=== PATIENT | male | born 1970 ===

== ENCOUNTER 2025-05-25 11:14 | Inpatient (IN) | payer OTHER, SELFPAY ==
--- NOTE | ~2025-05-25 | US_ITS ---
EXAMINATION: US EXTRACRANIAL CAROTID DUPLEX, BILATERAL CLINICAL INFORMATION: Acute right POLICE CADET territory CVA, Pt with CKD and unable to get CTA of head/neck COMPARISON: None available. TECHNIQUE: Real-time ultrasound and Doppler techniques (integrating B-mode 2-D vascular images, Doppler spectral analysis and color-flow Doppler imaging) were utilized to interrogate the extracranial carotid arteries, the vertebral arteries and proximal subclavian arteries bilaterally. The degree of stenosis is determined by criteria similar to NASCET. FINDINGS: Right Side: 1. There is no significant atherosclerotic plaque seen in the bifurcation/proximal ICA region. 2. The common carotid artery PSV proximally is 96 cm/s and distally 81 cm/s. 3. The proximal internal carotid artery velocities are 53 cm/s systolic and 14 cm/s diastolic. 4. The proximal external carotid artery PSV is 67 cm/s. 5. The vertebral artery shows antegrade flow. 6. The subclavian artery waveforms are biphasic. ICA/CCA ratio 0.55 Left Side: 1. There is no significant atherosclerotic plaque seen in the bifurcation/proximal ICA region. 2. The common carotid artery PSV proximally is 105 cm/s and distally 53 cm/s. 3. The proximal internal carotid artery velocities are 82 cm/s systolic and 31 cm/s diastolic. 4. The proximal external carotid artery PSV is 97 cm/s. 5. The vertebral artery shows antegrade flow. 6. The subclavian artery waveforms are triphasic. US/US carotid duplex BI IMPRESSION: 1. RIGHT: No hemodynamically significant stenosis. 2. LEFT: No hemodynamically significant stenosis. Electronically signed by: Jeancarlos Delgado MD 05/26/2025 10:35 AM EST
--- NOTE | ~2025-05-25 | CT_ITS ---
EXAMINATION: CT HEAD WITHOUT CONTRAST CLINICAL INFORMATION: head pressure, disoriented x 1 week COMPARISON: None available. TECHNIQUE: Contiguous axial imaging was performed from the skull base to vertex without intravenous administration of contrast. This CT examination was performed using dose optimization techniques as appropriate, variously including the following: *Automated exposure control *Adjustment of mA and/or kV according to patient size (this includes techniques or standardized protocols for targeted exams where dose is matched to indication/reason for exam; i.e. extremities or head) *Use of iterative reconstruction technique FINDINGS: There is low-attenuation in the right occipital lobe extending into the posterior right temporal lobe measuring slightly more than CSF density. There is also focal globular low attenuation in the region of the posterior aspect of the internal capsule on the right, near the margin with thalamus. There is no intracranial hemorrhage. There is no mass-effect or midline shift. Basal cisterns and ventricles are within normal limits for age/cerebral volume. Orbits are symmetrical and unremarkable. Paranasal sinuses and mastoid air cells are pneumatized. There are no bony abnormalities. CT/CT head/brain wo IV con IMPRESSION: Right WHITE SUGAR BOILER territory ischemic change, favor chronic. Electronically signed by: Jeancarlos Delgado MD 05/25/2025 12:10 PM EST
--- NOTE | ~2025-05-25 | MR_ITS ---
CLINICAL HISTORY: Evaluate for acute CVA --- Additional Notes or Special Instructions: CT showing subacute vs chronic stroke. Has had ataxia x1 MR Brain without gadolinium Comparison: CT/SR - CT HEAD WITHOUT IV CONTRAST - 05/25/25 11:53 EST Findings: Large region of right CIVIL ENGINEER'S AIDE territory restricted diffusion. Scattered T2/FLAIR hyperintensities in the deep white matter, nonspecific, however may represent sequela of chronic microvascular ischemic disease. No intra-axial mass or hemorrhage. No midline shift. No hydrocephalus. Vascular flow voids are intact. The orbits are normal. The sinuses and mastoid air cells are clear. No focal bone lesion. IMPRESSION: Acute right CIVIL ENGINEER'S AIDE territory infarct. This document has been electronically signed by: Alicia Goodman MD on 05/25/2025 18:10:21
[2025-05-25 11:19] VITALS: BP 122/67; PULSE 100; RESP 18; TEMP 36.4; O2SAT 100; BMI 16.5
--- NOTE | 2025-05-25 11:22 | ED_ITS ---
HPI - Chest Pain General Chief Complaint: Chest Pain Stated Complaint: stroke like symptoms, pcp sent here Time Seen by Provider: 05/25/25 12:02 Source: patient and RN notes reviewed Mode of arrival: ambulatory Limitations: no limitations History of Present Illness ED Provider: Mariia De Jesus PA-C HPI narrative: This is a 55-year-old male, with a past medical history of hyperlipidemia, hypertension, CKD - currently being worked up for a mass on kidney, who presents emergency department accompanied by female vocational training teacher with concerns of head pressure, disorientation, and poor balance x 1 week ago. Patient reports that 1 week ago while he was bending over rolling up a garden hose he experienced a sudden onset head pressure, disorientation, and unsteady gait that has been persistent. He describes an abrupt central had pressure accompanied by both legs feeling ?wobbly?, and felt confused. Symptoms have persisted since onset, had pressure is now about 10% of the initial intensity, states that with the pain has never fully resolved in fluctuating severity. He reports decreased appetite. He states that he feels unsteady on his feet in notes a delay between you were he intends to place his feet and actual movement. Last night he drove to a familiar pupils shots this out recognizing it, and ultimately drove passed it. He denies any double or blurry vision. No chest pain or shortness of breath. No abdominal pain, nausea, vomiting focal weakness, numbness or tingling. Patient's girlfriend urged patient to seek medical care, states that he called his doctor this morning and told him to come to the ED for evaluation. He states he had a similar episode 4-5 years ago what his face drooped, and states he was unable to fully close his left eyelid, and also had left-sided facial droop, he states that he has no focal deficits since then. No known history of a diagnosed stroke. He is not on anticoagulation. MD complaint: other Prior episodes: No Related Data Home Medications ?Medication ?Instructions ?Recorded ?Confirmed amlodipine 10 mg tablet 10 mg PO DAILY 05/25/25 atorvastatin 20 mg tablet 20 mg PO DAILY 05/25/25 dapagliflozin propanediol 10 mg 10 mg PO QAM 05/25/25 tablet (Farxiga) hydrochlorothiazide 25 mg tablet 25 mg PO DAILY lisinopril 20 mg tablet 20 mg PO BID 05/25/25 metformin 1,000 mg tablet 1,000 mg PO BID 05/25/25 omeprazole 40 mg capsule,delayed 40 mg PO DAILY release Allergies Allergy/AdvReac Type Severity Reaction Status Date / Time No Known Allergies Allergy Verified 05/25/25 11:24 Review of Systems 2 Review of Systems: Constitutional : No Fever, No Chills ENT/Mouth : No sore throat, No Rhinorrhea Eyes: No Eye Pain, No Swelling, No Redness Cardiovascular : No Chest Pain, No SOB Respiratory : No Cough, No Sputum Gastrointestinal : No Nausea, No Vomiting, No Diarrhea, No abdominal Pain Genitourinary : No Dysuria, No Hematuria Musculoskeletal : No joint pain, No Myalgias, No Joint Swelling Skin : No Skin Lesions Neuro : No Weakness, No Numbness, No Headache All other systems reviewed and are negative Yes all other systems are reviewed and are negative Constitutional: Constitutional: Reports as per [facility] Social History Social History Smoked in Last 30 Days: Yes Use of substances other than those prescribed or required for medical reasons: No Advance Directives: Yes Advance Directives Information Provided: Yes Advance Directives on File: No Do you have a plan to hurt others: No Plan Physical Exam 2 Vital Signs: Vital Signs: Last Vital Signs Temp 97.6 F 05/25/25 11:19 Pulse 83 05/25/25 12:31 Resp 18 05/25/25 12:31 BP 124/79 05/25/25 12:31 Pulse Ox 96 05/25/25 12:31 O2 Del Method Room Air 05/25/25 12:31 BMI result Body Mass Index 16.5 Const: General: cooperative, comfortable and no acute distress O rientation/consciousness: patient oriented x3 Limitations: no limitations HEENT: Head: Yes normal to inspection, Yes normocephalic and Yes atraumatic Ears: hearing grossly normal bilaterally General nose exam: Normal external nose present Face and sinus: Yes normal facial exam Mouth: Normal oral and palatal mucosa present, oropharynx normal and moist mucous membranes Throat: Yes posterior oropharynx normal Eyes: General: appearance normal, both eyes and all related structures E yelids: Yes eyelids normal Conjunctivae: conjunctivae normal Sclerae: s clerae normal Pupils: Equal, round and reactive pupils present EOM: EOMs intact bilaterally Neck: Neck: Yes normal visual inspection, Yes full ROM and Yes no lymphadenopathy Lymphatic: no lymphadenopathy noted Chest: Chest palpation & inspection: normal inspection of the chest Resp: Effort & Inspection: normal respiratory effort and able to speak in complete sentences Auscultation: clear to auscultation bilaterally, no crackles, no rales, no rhonchi and no wheezes Cardio: Rate: regular rate Rhythm: regular rhythm Heart sounds: S1 normal heart sound present and S2 normal heart sound present GI: Inspection: Yes normal to inspection Skin: General skin exam: no rashes or lesions noted Trauma: no lacerations or abrasions Wounds: no wounds Neuro: Other: Left-sided facial droop noted(girlfriend and patient state this is chronic) General: patient oriented x3, gait normal and moves all extremities C ranial nerves: Yes CN's II-XII intact bilaterally and Yes Equal, round and reactive pupils present Cognition (Neuro): normal cognition Gait exam (Neuro): Normal gait present Motor exam (neuro): 5/5 motor strength present throughout and Pronator motor function not present Coordination: [id number] test normal Pupils: Normal pupillary reactivity/response: bilateral Extrem: General: Yes normal to inspection Right upper extremity: normal to inspection Left upper extremity: normal to inspection Right lower extremity: normal to inspection Left lower extremity: normal to inspection NIH Stroke Scale Internal: Initial- Upon Arrival Time: 12:32 Level of Consciousness: Alert Level of Consciousness Questions: Answers both questions correctly Level of Consciousness Commands: Performs both tasks correctly Best Gaze: Normal Visual: No visual loss Facial Palsy: Minor paralyis (Left-sided facial droop) Motor Arm (Right): No drift Motor Arm (Left): No drift Motor Leg (Right): No drift Motor Leg (Left): No drift Limb Ataxia: Absent Sensory: Normal Best Language: No aphasia Dysarthia: Normal Extinction and Inattention: No abnormality Score: 1 Course Course Course Narrative: This is a rapid medical exam performed by Regina Fry NP: Additional HPI, ROS, PE not included below will be deferred to primary provider. Patient is a 55y/o M presenting to the ED stating that he thinks he had a stroke last Sunday. Had frontal head pressure, disorientation, loss of balance. Was overexerting himself doing yard work that day. Denies headache. Plan: EKG, labs, CT head Medications Administered Discontinued Medications Generic Name Dose Route Start Last Admin Trade Name Liana PRN Reason Stop Dose Admin Magnesium Sulfate 2 gm in 50 mls @ 150 mls/hr 05/25/25 13:23 05/25/25 13:41 Magnesium Sulfate/H2o IV 05/25/25 13:42 150 mls/hr ONCE ONE Administration Sodium Chloride 1,000 mls @ 999 mls/hr 05/25/25 13:24 05/25/25 13:42 Ns IV 05/25/25 14:24 999 mls/hr .Q1H1M ONE Administration Medical Decision Making Medical Decision Making MDM Narrative: This is a 55-year-old male who presents emergency department with concerns of head pressure, disorientation, and poor balance x1 week. On arrival, vital signs within normal limits. Patient does have left-sided facial droop which he reports is chronic. No other neurologic focal findings noted. Patient was able to take several steps, patient states that he feels disoriented, and believes that there is a separation between his head in his feet when he is walking. Patient with acute/subacute neurologic symptoms beginning 1 week ago, concerning for CVA event versus alternative intracranial pathology. 12:38 PM 05/25/2025 (Mariia De Jesus PA-C): CT head revealing your right [employer] territorial infarct, likely chronic. Patient did have symptoms several years ago, however states that his symptoms eventually resolved. CTA was ordered for further diagnostics. Case discussed with my attending physician who is in agreement. Given symptom onset was 1 week ago, not made a stroke protocol as patient is not a TNK or clot retrieval patient. Labs, CTA ordered. Patient will likely need to be admitted for further management of likely stroke. 2:20 PM 05/25/2025 (Mariia De Jesus PA-C): Labs have returned, he did have a critical magnesium at 1.4, replenished with IV magnesium. Creatinine 2.2, and a BUN of 47. Patient states that he has a history of CKD, we have no previous for comparison. Given this, I informed hospitalist as he likely will need an MRI, unclear if they are going to want to CTA given kidney function, we will defer additional diagnostic imaging to the hospitalist service. Discussed case with hospitalist, transfer of care initiated. Differential Diagnosis Differential Diagnoses: The differential diagnosis associated with the presentation includes CVA, ICH, SDH, electrolyte derangement Admission/Observation Consideration of admission/observation: Escalation of care including admission/observation considered Lab Data [facility] Lab Attestation statement: I reviewed the patient's lab results. See MDM 05/25/25 12:26 05/25/25 12:26 Labs: Lab Results 05/25/25 05/25/25 Range/Units 12:26 12:27 WBC 9.5 (4.8-10.8) X10*3/uL RBC 4.73 (4.60-5.80) X10*6/uL Hgb 15.0 (14.0-18.0) g/dl Hct 44.1 (42.0-52.0) % MCV 93.2 (80.0-98.0) fL MCH 31.7 (27.0-33.0) pg MCHC 34.0 (31.0-36.0) g/dl RDW 13.3 (11.0-16.0) % Plt Count 267 (160-400) X10*3/uL MPV 10.1 (9.4-12.4) fL Immature Gran % (Auto) 0.3 (0.0-0.4) % Neut % (Auto) 71.6 (45-73) % Lymph % (Auto) 19.9 L (20-40) % [place] % (Auto) 5.4 (2-11) % Eos % (Auto) 1.9 (0-4) % Baso % (Auto) 0.9 (0-2) % Lymph # (Auto) 1.9 (1.2-4.9) X10*3/uL [place] # (Auto) 0.5 (0.1-1.2) X10*3/uL Eos # (Auto) 0.2 (0.0-0.4) X10*3/uL Baso # (Auto) 0.1 (0.0-0.2) X10*3/uL Abs Immat Gran (auto) 0.03 (0.00-0.03) X10*3/uL Absolute Neuts (auto) 6.8 (2.0-8.3) x10*3/uL Absolute Nucleated RBC 0.000 (0.0-0.012) X10*3/uL Nucleated RBC % (auto) 0.0 (0.0-0.2) /100WBC PT 13.3 (11.2-13.5) SEC INR 1.1 (0.9-1.1) Sodium 141 (135-145) mmol/L Potassium 4.6 (3.3-5.1) mmol/L Chloride 109 H (96-108) mmol/L Carbon Dioxide 20 L (22-29) mmol/L Anion Gap 17 (12-20) BUN 47 H (9-16) mg/dL Creatinine 2.22 H (0.5-1.4) mg/dL Estim Creat Clear Calc 23.6 Estimated GFR 31 Random Glucose 112 (60-115) mg/dL Calcium 9.1 (8.4-10.2) mg/dL Magnesium 1.4 L* (1.6-2.6) mg/dL Total Bilirubin 0.6 (0.0-1.0) mg/dL AST 25 (5-37) U/L ALT 29 (0-40) U/L Alkaline Phosphatase 71 (39-117) U/L Troponin I High Sens 8.1 (<3.5-35.0) ng/L Total Protein 7.5 (6.5-8.0) g/dL Albumin 4.5 (3.5-5.0) g/dL Influenza Type A (PCR) NEGATIVE (Negative) Influenza Type B (PCR) NEGATIVE (Negative) RSV RNA Qual (PCR) NEGATIVE (Negative) SARS-CoV-2 RNA (RT-PCR) NEGATIVE (Negative) Radiology Impression Discussion of test interpretation with radiology: I have reviewed the radiologist's reading. Radiologist Impression: FINDINGS: There is low-attenuation in the right occipital lobe extending into the posterior right temporal lobe measuring slightly more than CSF density. There is also focal globular low attenuation in the region of the posterior aspect of the internal capsule on the right, near the margin with thalamus. There is no intracranial hemorrhage. There is no mass-effect or midline shift. Basal cisterns and ventricles are within normal limits for age/cerebral volume. Orbits are symmetrical and unremarkable. Paranasal sinuses and mastoid air cells are pneumatized. There are no bony abnormalities. CT/CT head/brain wo IV con IMPRESSION: Right [employer] territory ischemic change, favor chronic. Electronically signed by: Jeancarlos Delgado MD 05/25/2025 12:10 PM EST Dictated By: Jeancarlos Delgado MD Critical Care Time Critical Care Time Critical Care Time: Yes Total Critical Care Time: 45 Attestation: I have personally provided critical care time exclusive of time spent on separately billable procedures. Time includes review of lab data, radiology results, discussion with consultants, and monitoring for potential decompensation. Intervention performed as documented. Discharge Plan Discharge Clinical Impression: CVA (cerebral vascular accident) Patient Disposition: Admitted As Inpatient
--- NOTE | 2025-05-25 11:24 | ECG_ITS ---
Test Reason : UNSTEADY Blood Pressure : */* mmHG Vent. Rate : 92 BPM Atrial Rate : 92 BPM P-R Int : 182 ms QRS Dur : 84 ms QT Int : 342 ms P-R-T Axes : 54 -20 34 degrees QTcB Int : 422 ms Normal sinus rhythm cannot exclude old Inferior infarct , age undetermined Abnormal ECG No previous ECGs available Referred By: Jamia Fry Electronically Signed By: YOSHI RUIZ
[2025-05-25 12:31] VITALS: BP 124/79; PULSE 83; PULSE 87; RESP 18; O2SAT 96
[2025-05-25 12:44] LABS: MANUAL DIFF FLAG NO
[2025-05-25 12:49] LABS: Hematocrit 44.1 % (42.0-52.0); Hemoglobin 15.0 g/dl (14.0-18.0); Imm Gran Abs Auto 0.03 X10*3/uL (0.00-0.03); Imm Gran Pct Auto 0.3 % (0.0-0.4); Lymphocytes Absolute Auto 1.9 X10*3/uL (1.2-4.9); Mean Corpuscular HGB Conc 34.0 g/dl (31.0-36.0); Mean Corpuscular Hemoglobin 31.7 pg (27.0-33.0); Mean Corpuscular Volume 93.2 fL (80.0-98.0); NRBC Abs Auto 0.000 X10*3/uL (0.0-0.012); NRBC Pct Auto 0.0 /100WBC (0.0-0.2); Platelet Count 267 X10*3/uL (160-400); Red Blood Count 4.73 X10*6/uL (4.60-5.80); White Blood Count 9.5 X10*3/uL (4.8-10.8)
[2025-05-25 12:51] LABS: INTERNATIONAL NORM RATIO 1.1 (0.9-1.1); Prothrombin Time 13.3 SEC (11.2-13.5)
[2025-05-25 13:10] LABS: Troponin-I High Sensitivity 8.1 ng/L (<3.5-35.0)
[2025-05-25 13:24] LABS: Alanine Aminotransferase 29 U/L (0-40); Albumin Level 4.5 g/dL (3.5-5.0); Alkaline Phosphatase 71 U/L (39-117); Anion Gap 17 (12-20); Aspartate Amino Transferase 25 U/L (5-37); Blood Urea Nitrogen 47 mg/dL (9-16); Calcium 9.1 mg/dL (8.4-10.2); Carbon Dioxide 20 mmol/L (22-29); Chloride 109 mmol/L (96-108); Creatinine Clr Calc Pharmacy 23.6; Estimated Glomerular Filt Rate 31; Magnesium 1.4 mg/dL (1.6-2.6); Potassium 4.6 mmol/L (3.3-5.1); Sodium 141 mmol/L (135-145); Total Protein 7.5 g/dL (6.5-8.0)
[2025-05-25 13:26] LABS: Resp Syncy Virus RNA Qual PCR NEGATIVE (Negative); SARS COV2 PCR INHOUSE NEGATIVE (Negative)
[2025-05-25] MEDS: Magnesium Sulfate/H2O 2 GM/50 ML PIGGYBACK IV (13:41)
--- NOTE | 2025-05-25 13:53 | HO.NURTONUR ---
Addendum entered by Casie Prater RN 05/25/25 16:18: CT shows +CVA will need f/u MRI. MRI screening form complete Original Note: Pt here w/ c/o stroke sx's x 1 week. Pt states 1 wk ago while doing yard work had sudden onset of frontal head pressure; since then pt states he has found himself to be disoriented, unsteady on feet, and decr. po intake. Pt denies ever having cp/dizziness/blurry vision/nausea. Pt ambulated w/ steady gait in ED. Mg 1.4 and pt was repleted.
--- NOTE | 2025-05-25 15:12 | PHA.MEDREC ---
Pharmacy Consult ? Medication Reconciliation Pharmacy has completed the medication reconciliation. Spoke to patient who had a written home med list to confirm.
--- OUTSIDE RECORDS SUMMARY | 2025-05-25 15:28 | XMS_ITS | Encounter Summary ---
Author Organization [facility] Address [address] [place] [address] Phone Care Team Providers Care Talent Program Manager Name Role Phone Katelyn Guevara MD Primary Care Provider Encounter Details Date Type Department Care Team (Late st Contact Info) Description 11/07/2024 Documentation Only [facility] [address] [place] [address] Adria Kim [address] [place] [address] Social History Tobacco Use Types Packs/Day Years Used Date Smoking Tobacco: Never Assessed Sex and Gender Information Value Date Recorded Sex Assigned at Not on file Legal Sex Male 10:06 AM EDT Gender Identity Not on file Sexual Orientation Not on file documented as of this encounter Plan of Treatment Upcoming Encounters Date Type Department Care Team (Late st Contact Info) Description 11/04/2025 1:45 PM EDT Office Visit [facility] [address] [place] [address] Hossein Lipscomb MD [address] [place] [address] [place] [phone] documented as of this encounter Visit Diagnoses Not on filedocumented in this encounter Care Teams Talent Program Manager Relationship Specialty Start Date End Date Katelyn Guevara MD [address] [place] [address] PCP - General Internal Medicine 09/26/23 documented as of this encounter
--- OUTSIDE RECORDS SUMMARY | 2025-05-25 15:28 | XMS_ITS | Encounter Summary ---
Author Organization [facility] Address [address] [facility] [address] [place] [address] Phone Care Team Providers Care Blasting Helper Name Role Phone Katelyn Guevara MD Primary Care Provider [phone] Encounter Details Date Type Department Care Team (Late st Contact Info) Description 05/06/2024 Documentation Only [facility] [address] [place] [address] [place], [place] [address] [place] [address] Social History Tobacco Use Types [...] Visit [facility] [address] [place] [address] Hossein Lipscomb MD [address] [place] [address] [place] [phone] documented as of this encounter Visit Diagnoses Not on filedocumented in this encounter Care Teams Blasting Helper Relationship Specialty Start Date End Date Katelyn Guevara MD [address] [place] [address] PCP - General Internal Medicine 09/26/23 documented as of this encounter
--- OUTSIDE RECORDS SUMMARY | 2025-05-25 15:28 | XMS_ITS | Clinical Summary ---
Author Organization [facility] Address [address] [address] Phone Care Team Providers Care Team Foreman Name Role Phone Katelyn Guevara MD Primary Care Provider [phone] Allergies No known active allergies Medications amLODIPine (NORVASC) 10 MG tablet Take 10 mg by mouth 1 (one) time each day 4 Active hydroCHLOROthia zide 25 MG tablet Take 25 mg by mouth 1 (one) time each day 4 Active lisinopril 20 MG tablet Take 20 mg by mouth in the morning and 20 mg in the evening. 4 Active metFORMIN (GLUCOPHAGE) 1000 MG tablet Take 1,000 mg by mouth in the morning and 1,000 mg in the evening. 4 Active sildenafil (VIAGRA) 100 MG tablet Take 100 mg by mouth 1 (one) time each day if needed for erectile dysfunction Active omeprazole (PriLOSEC) [address] capsule TAKE 1 CAPSULE BY MOUTH ONCE DAILY 4 Active Farxiga 10 MG tablet Take 10 mg by mouth every morning 90 tablet 3 4 06/11/20 25 Active atorvastatin (LIPITOR) 20 MG tablet Take 1 tablet (20 mg total) by mouth 1 (one) time each day 90 tablet 3 5 01/02/20 26 Active Active Problems Problem Noted Date Diagnosed Date Hypertension 01/02/2024 Encounters Date Type Department Care Team Description 04/22/2025 2:45 PM EDT Office Visit [facility], [address] [place] [address] Hossein Lipscomb MD Chronic kidney disease, stage 4 (severe) (HCC) (Primary Dx) from Last 3 Months Social History Tobacco Use Types Packs/Day Years Used Date Smoking Tobacco: Never Assessed Sex and Gender Information Value Date Recorded Sex Assigned at Not on file Legal Sex Male 10:06 AM EDT Gender Identity Not on file Sexual Orientation Not on file Plan of Treatment Upcoming Encounters Date Type Department Care Team (Late st Contact Info) Description 11/04/2025 1:45 PM EDT Office Visit [facility] [place], [address] [place] [address] Hossein Lipscomb MD [address] [facility] [place] [address] Health Maintenance Due Date Last Done Comments Hepatitis B Vaccine (1 of 3 - 19+ 3-dose series) 02/14 Pneumococcal Vaccine: 50+ Years (1 of 2 - PCV) 988 Colorectal Cancer Screening: Annual FOBT 2018 Colorectal Cancer Screening: Colonoscopy 2018 Colorectal Cancer Screening: Sigmoidoscopy 2018 Influenza Vaccine (#1) 2025 Insurance Medicaid [place] Member Subscriber Plan / Payer (Ef fective 2024-Present) Name:Nicko Mujica Relation to Subscriber:Self Name:Nicko Mujica Payer ID:Not on file Group ID:Not on file Type:Not on file Address: [address] [address] [employer] Medicaid Care Teams Team Foreman Relationship Specialty Start Date End Date Katelyn Guevara MD [address] [facility] [address] PCP - General Internal Medicine 09/26/23
--- OUTSIDE RECORDS SUMMARY | 2025-05-25 15:28 | XMS_ITS | Encounter Summary ---
Author Organization [facility] Address [address] [facility] [address] [place] [address] Phone Care Team Providers Care Senior Research Executive Name Role Phone Katelyn Guevara MD Primary Care Provider [phone] Encounter Details Date Type Department Care Team (Late st Contact Info) Description 09/26/2023 Documentation Only [facility] [address] [place] [address] [place], [place] [address] [place] [address] Social History Tobacco Use Types [...] Visit [facility] [address] [place] [address] Hossein Lipscomb MD [address] [place] [address] [place] [phone] documented as of this encounter Visit Diagnoses Not on filedocumented in this encounter Care Teams Senior Research Executive Relationship Specialty Start Date End Date Katelyn Guevara MD [address] [place] [address] PCP - General Internal Medicine 09/26/23 documented as of this encounter
--- OUTSIDE RECORDS SUMMARY | 2025-05-25 15:28 | XMS_ITS | Encounter Summary ---
Author Organization [facility] Address [address] [facility] [address] [place] [address] Phone Care Team Providers Care Continuous Drier Helper Name Role Phone Katelyn Guevara MD Primary Care Provider [phone] Encounter Details Date Type Department Care Team (Late st Contact Info) Description 05/06/2024 Documentation Only [facility] [address] [place] [place] [address] [place], [place] [address] [place] [address] Social History Tobacco Use Types [...] Visit [facility] [address] [place] [address] Hossein Lipscomb MD [address] [place] [address] [place] [phone] documented as of this encounter Visit Diagnoses Not on filedocumented in this encounter Care Teams Continuous Drier Helper Relationship Specialty Start Date End Date Katelyn Guevara MD [address] [place] [address] PCP - General Internal Medicine 09/26/23 documented as of this encounter
--- OUTSIDE RECORDS SUMMARY | 2025-05-25 15:28 | XMS_ITS | Encounter Summary ---
Author Organization [facility] Address [address] [place] [address] Phone Care Team Providers Care Stenotypist Name Role Phone Katelyn Guevara MD Primary Care Provider [phone] Encounter Details Date Type Department Care Team (Late st Contact Info) Description 10/31/2024 Documentation Only [facility] [address] [place] [address] Adria Kim [address] [place] [address] Social History Tobacco Use Types [...] Visit [facility] [address] [place] [address] Hossein Lipscomb MD [address] [place] [address] [place] [phone] documented as of this encounter Visit Diagnoses Not on filedocumented in this encounter Care Teams Stenotypist Relationship Specialty Start Date End Date Katelyn Guevara MD [address] [place] [address] PCP - General Internal Medicine 09/26/23 documented as of this encounter
--- OUTSIDE RECORDS SUMMARY | 2025-05-25 15:28 | XMS_ITS | Encounter Summary ---
Author Organization [facility] Address [address] [facility] [address] [place] [address] Phone Care Team Providers Care Wine Manager Name Role Phone Katelyn Guevara MD Primary Care Provider [phone] Encounter Details Date Type Department Care Team (Late st Contact Info) Description 02/27/2024 Documentation Only [facility] [address] [place] [place] [address] Homer Walsh MD [address] [place] [address] [place] [address] Social History Tobacco Use Types Packs/Day Years [...] Visit [facility] [address] [place] [place] [address] Hossein Lipscomb MD [address] [place] [address] [place] [address] documented as of this encounter Visit Diagnoses Not on filedocumented in this encounter Care Teams Wine Manager Relationship Specialty Start Date End Date Katelyn Guevara MD [address] [place] [address] PCP - General Internal Medicine 09/26/23 documented as of this encounter
--- OUTSIDE RECORDS SUMMARY | 2025-05-25 15:28 | XMS_ITS | Encounter Summary ---
Author Organization [facility] Address PO [facility] [address] [place] [address] Phone Care Team Providers Care Garnisher Name Role Phone Katelyn Guevara MD Primary Care Provider [phone] Encounter Details Date Type Department Care Team (Late st Contact Info) Description 09/26/2024 Documentation Only [facility] [address] [place] [address] [place]Renay [place], [place] [address] [place] [address] Social History Tobacco Use Types [...] Visit [facility] [address] [place] [address] Hossein Lipscomb MD [address] [place] [address] [place] [phone] documented as of this encounter Visit Diagnoses Not on filedocumented in this encounter Care Teams Garnisher Relationship Specialty Start Date End Date Katelyn Guevara MD [address] [place] [id number] PCP - General Internal Medicine 09/26/23 documented as of this encounter
--- OUTSIDE RECORDS SUMMARY | 2025-05-25 15:28 | XMS_ITS | Encounter Summary ---
Author Organization [facility] Address PO [facility] [address] [place] [address] Phone Care Team Providers Care Tool Engine Lathe Set Up Operator Name Role Phone Katelyn Guevara MD Primary Care Provider [phone] Encounter Details Date Type Department Care Team (Late st Contact Info) Description 05/06/2024 Documentation Only [facility] [address] [place] [address] [place]ay [place], [place] [address] [place] [address] Social History Tobacco Use Types [...] Visit [facility] [address] [place] [address] Hossein Lipscomb MD [address] [place] [address] [place] [phone] documented as of this encounter Visit Diagnoses Not on filedocumented in this encounter Care Teams Tool Engine Lathe Set Up Operator Relationship Specialty Start Date End Date Katelyn Guevara MD [address] [place] [id number] PCP - General Internal Medicine 09/26/23 documented as of this encounter
--- OUTSIDE RECORDS SUMMARY | 2025-05-25 15:28 | XMS_ITS | Encounter Summary ---
Author Organization [facility] [place], Address [address] [place] [address] Phone Care Team Providers Care Yarn Skeins Examiner Name Role Phone Katelyn Guevara MD Primary Care Provider [phone] Encounter Details Date Type Department Care Team (Late st Contact Info) Description 04/21/2024 Documentation Only [facility] [address] H[address]ICK [address] [place] [phone] Kim Covington [address] [place] [address] Social History Tobacco Use Types [...] Visit [facility] [address] [place] [address] Hossein Lipscomb MD [address] [place] [address] [place] [phone] documented as of this encounter Visit Diagnoses Not on filedocumented in this encounter Care Teams Yarn Skeins Examiner Relationship Specialty Start Date End Date Katelyn Guevara MD [address] [place] [address] PCP - General Internal Medicine 09/26/23 documented as of this encounter
--- OUTSIDE RECORDS SUMMARY | 2025-05-25 15:28 | XMS_ITS | Encounter Summary ---
Author Organization [facility] Address [address] [place] [address] Phone Care Team Providers Care Bolting Machine Operator Name Role Phone Katelyn Guevara MD Primary Care Provider [phone] Encounter Details Date Type Department Care Team (Late st Contact Info) Description 08/21/2024 Documentation Only [facility] [address] [place] [address] Mahnaz [place], [place] [address] [place] [address] Social History Tobacco Use Types [...] Visit [facility] [address] [place] [address] Hossein Lipscomb MD [address] [place] [address] [place] [phone] documented as of this encounter Visit Diagnoses Not on filedocumented in this encounter Care Teams Bolting Machine Operator Relationship Specialty Start Date End Date Katelyn Guevara MD [address] [place] [phone] PCP - General Internal Medicine 09/26/23 documented as of this encounter
--- NOTE | 2025-05-25 15:41 | PM.NEUROCN ---
History of Present Illness Data of Consult Service Date: 05/25/25 Primary Care Provider: Unknown Physician HPI Reason for consult: Stroke 55 years old man with past medical history of hypertension and renal insufficiency who apparently is being investigated for a renal mass, as per ER notes, came to emergency room for ?head pressure?. He said that this was not headache or a pain but rather it was a pressure type feeling. There was no associated focal weakness or visual symptom. He was working in the [employer] when it started and it started about a week ago. For some reason he decided to come to hospital today. There was no previous history of similar symptoms or significant headaches. His stated that his personality has been somewhat different and he has been argumentative during last few days. Review of Systems Review of Systems: General: No significant loss of weight Cardiovascular: No chest pain or palpitation Respiratory: No shortness of breath or wheezing Genitourinary: No loss of bowel bladder control Neurological: Denies headaches Psychiatric: stated that they have been some change in personality during last few days Gastrointestinal: No significant changes were symptoms Skin: No obvious lesions or new lesions Musculoskeletal: No significant symptoms PMFSH Social History Social History Smoked in Last 30 Days: Yes Use of substances other than those prescribed or required for medical reasons: No Advance Directives: Yes Advance Directives Information Provided: Yes Advance Directives on File: No Do you have a plan to hurt others: No Plan Meds Allergies Allergy/AdvReac Type Severity Reaction Status Date / Time No Known Allergies Allergy Verified 05/25/25 11:24 Active Medications: Current Medications Lactated Ringer's (Lr) 1,000 mls @ 100 mls/hr IVCONT .Q10H SASHA Home Medications ?Medication ?Instructions ?Recorded ?Confirmed ?Last Taken ?Type amlodipine 10 mg tablet 10 mg PO DAILY 05/25/25 05/25/25 05/25/25 History atorvastatin 20 mg tablet 20 mg PO DAILY 05/25/25 05/25/25 05/25/25 History dapagliflozin propanediol 10 mg 10 mg PO DAILY 05/25/25 05/25/25 05/25/25 History tablet (Farxiga) hydrochlorothiazide 25 mg tablet 25 mg PO DAILY 05/25/25 05/25/25 05/25/25 History lisinopril 20 mg tablet 20 mg PO BID 05/25/25 05/25/25 05/25/25 History metformin 1,000 mg tablet 1,000 mg PO BID 05/25/25 05/25/25 05/25/25 History omeprazole 40 mg capsule,delayed 40 mg PO DAILY@0630 05/25/25 05/25/25 05/25/25 History release Physical Exam Vital Signs: Vital Signs: Last Vital Signs Temp 97.6 F 05/25/25 11:19 Pulse 83 05/25/25 12:31 Resp 18 05/25/25 12:31 BP 124/79 05/25/25 12:31 Pulse Ox 96 05/25/25 12:31 O2 Del Method Room Air 05/25/25 12:31 BMI result Body Mass Index 16.5 Neuro: Other: Mental Status: Alert and oriented to person, place, and time. Normal attention. Normal spontaneous speech, fluency, and comprehension. He same little bit 1st stated or inpatient. Cranial Nerves: CN II: Visual dennis full to confrontation, visual acuity intact. CN III, IV, : Pupils equal, round, reactive to light and accommodation. Extraocular movements are normal. CN V: Facial sensation is normal. CN VII: Facial movements symmetrical. CN VIII: Hearing intact to bedside conversation is normal. CN IX, X: Palate elevates symmetrically. CN XI: Shoulder shrug and head turn symmetrical. CN XII: Tongue midline without atrophy or fasciculations. Motor: Bulk and tone normal in all extremities. No significant muscle weakness in arms and legs. No drift. Reflexes: Deep tendon reflexes 2+ and symmetric. Plantar response down-going bilaterally. Coordination: [id number] and ciok-do-[id number] testing normal. No dysmetria. Gait and Station: No obvious gait abnormality. No ataxia or instability. Extrapyramidal: Full facial expressions and blinking. No rigidity. Movements are appropriate with no tremor or abnormality. Speech: Normal; no dysarthria or tremor. Results Labs 05/25/25 12:26 05/25/25 12: Labs: Short CBC 05/25/25 Range/Units 12: WBC 9.5 (4.8-10.8) X10*3/uL Hgb 15.0 (14.0-18.0) g/dl Hct 44.1 (42.0-52.0) % Plt Count 267 (160-400) X10*3/uL [facility] 05/25/25 12:26 Sodium 141 Potassium 4.6 Chloride 109 H Carbon Dioxide 20 L BUN 47 H Creatinine 2.22 H Calcium 9.1 Liver Function 05/25/25 Range/Units 12:26 Total Bilirubin 0.6 (0.0-1.0) mg/dL AST 25 (5-37) U/L ALT 29 (0-40) U/L Alkaline Phosphatase 71 (39-117) U/L Albumin 4.5 (3.5-5.0) g/dL [address] [address] [address] Scan Report Signed Patient: Nicko Mujica MR#: [id number] : 1970 Acct:[id number] Age/Sex: 55 / M ADM Date: 05/25/25 Loc: HO.ED Attending Dr: Ordering Physician: Jamia Fry NP Date of Service: 05/25/25 Procedure(s): CT head/brain wo IV con Accession Number(s): [id number] cc: Physician,Unknown ; Jamia Fry NP~ Report Number: [id number]: Total DLP = 686.00 mGy-cm Reason for Exam: head pressure, disoriented x 1 week EXAMINATION: CT HEAD WITHOUT CONTRAST CLINICAL INFORMATION: head pressure, disoriented x 1 week COMPARISON: None available. TECHNIQUE: Contiguous axial imaging was performed from the skull base to vertex without intravenous administration of contrast. This CT examination was performed using dose optimization techniques as appropriate, variously including the following: *Automated exposure control *Adjustment of mA and/or kV according to patient size (this includes techniques or standardized protocols for targeted exams where dose is matched to indication/reason for exam; i.e. extremities or head) *Use of iterative reconstruction technique Assessment and Plan (1) CVA (cerebral vascular accident): Qualifiers: CVA mechanism: unspecified Qualified Code(s): I63.9 - Cerebral infarction, unspecified Status: Acute 55 years old man who probably has a subacute right posterior cerebral artery area ischemic infarct. Etiology was unclear as it could be embolism versus atherothrombotic. My recommendation is to obtain CTA of brain and neck, have cardiac tele to rule out atrial fibrillation, and have a noncontrast MRI of brain. Also, find out the nature of renal problem or lesion, which might help to figure out cause of this lesion. I would recommend holding at least some of the blood pressure medicines to avoid hypotension, which could make his situation worse. Procedures Date of Service Date of Service: 05/25/25
[2025-05-25 15:46] VITALS: BP 129/64; PULSE 87; RESP 21; TEMP 36.5; O2SAT 96
[2025-05-25 16:21] VITALS: BP 142/82; PULSE 84; RESP 18; TEMP 36.4; O2SAT 93
[2025-05-25 17:09] LABS: Cholesterol 141 mg/dL (<200); HDL Cholesterol 32 mg/dL (>40); Triglycerides 268 mg/dL (<150)
[2025-05-25] MEDS: Lactated Ringers 1,000 ML 100 ML IVCONT (18:59)
[2025-05-25 19:15] LABS: Anion Gap 16 (12-20); Blood Urea Nitrogen 44 mg/dL (9-16); Calcium 9.3 mg/dL (8.4-10.2); Carbon Dioxide 22 mmol/L (22-29); Chloride 108 mmol/L (96-108); Creatinine Clr Calc Pharmacy 26.2; Estimated Glomerular Filt Rate 35; Potassium 4.5 mmol/L (3.3-5.1); Sodium 141 mmol/L (135-145)
--- NOTE | 2025-05-25 19:20 | PC.NURSE ---
critical rad result recieved by this RN after attempt to reach provider - per DON Mclain, critical result had already been communicated by radiology to him with no further questions.
[2025-05-25 19:26] VITALS: BP 122/71; PULSE 86; RESP 18; TEMP 36.6; O2SAT 97
--- NOTE | 2025-05-25 22:05 | P.HPHOSP_ITS ---
History of Present Illness Date of Service: 05/25/25 Chief Complaint: Difficulty walking Pt is a 55-year-old male with a PMH significant for?HTN, HLD, non-insulin dependent diabetes type 2, CKD (reportedly being worked up for a mass on the kidney) and GERD who presents to the ED with?poor balance and head pressure x7 days. Pt is uncertain exactly how to voice his complaints, but describes difficulty walking as being not sure where my feet are going . Headache is less a pain than a pressure at the front of his head. At first was very intense though now has gradually gotten better. Pt reports that he just feels off and not right . Denies ale paresis or fall. No difficulty speaking or word finding. Reports a previous similar episode 5 years ago when his left eye and lip drooped for a few days before recovering somewhat, though he reports he now has a chronic left-sided facial droop. Did not have a headache at that time. Did not seek medical attention or evaluation at that time. Pt did not come to the hospital last week as he thought he could similarly wait out these symptoms; however when they did not resolve his girlfriend convinced him to come to the hospital for evaluation. In the ED pt's vitals were stable. Labs were significant for creatinine 2.22 (baseline unknown, magnesium 1.4, triglycerides 268, HDL 32. CT of head showing right RETAIL PERSONAL BANKER territory ischemic change favoring chronic infarct. MRI showing acute right RETAIL PERSONAL BANKER territory infarct. Pt was treated in the ED with magnesium sulfate 2g IV and 1L IVF bolus. Pt is admitted to the hospital for acute CVA. Review of Systems 2 Review of Systems: Yes all other systems are reviewed and are negative [facility] Social History Smoked in Last 30 Days: Yes Use of substances other than those prescribed or required for medical reasons: No Advance Directives: Yes Advance Directives Information Provided: Yes Advance Directives on File: No Do you have a plan to hurt others: No Plan Meds Allergies Allergy/AdvReac Type Severity Reaction Status Date / Time No Known Allergies Allergy Verified 05/25/25 11:24 Active Medications: Current Medications Acetaminophen (Acetaminophen 325 Mg Tablet) 650 mg PO Q6H PRN PRN Reason: Pain, Mild 1-3,fever,headache Amlodipine Besylate (Amlodipine Besylate 10 Mg Tablet) 10 mg PO DAILY [facility]; Protocol Aspirin (Aspirin 81 Mg Tab.Chew) 81 mg PO DAILY [facility] Last Admin: 05/25/25 18:58 Dose: 81 mg Atorvastatin Calcium (Atorvastatin Calcium 40 Mg Tablet) 40 mg PO BEDTIME [facility] Calcium Carbonate (Calcium Carbonate 750 Mg Tab.Chew) 750 mg PO Q4H PRN PRN Reason: Heartburn Enoxaparin Sodium (Enoxaparin Sodium 30 Mg/0.3 Ml Syringe) 30 mg SUBCUT Q24H [facility] Last Admin: 05/25/25 19:05 Dose: 30 mg Hydrochlorothiazide (Hydrochlorothiazide 25 Mg Tablet) 25 mg PO DAILY [facility]; Protocol Lactated Ringer's (Lr) 1,000 mls @ 100 mls/hr IVCONT .Q10H [facility] Stop: 05/26/25 00:44 Last Admin: 05/25/25 18:59 Dose: 100 mls/hr Lisinopril (Lisinopril 20 Mg Tablet) 20 mg PO BID [facility]; Protocol Magnesium Hydroxide (Milk Of Magnesia 30 Ml Oral.Susp) 30 ml PO DAILY PRN PRN Reason: Constipation Magnesium Hydroxide (Milk Of Magnesia 30 Ml Oral.Susp) 30 ml PO DAILY PRN PRN Reason: Constipation Melatonin (Melatonin 3 Mg Tablet) 6 mg PO BEDTIME PRN PRN Reason: Insomnia Omeprazole (Omeprazole 40 Mg Capsule.Dr) 40 mg PO DAILY@0630 [facility] Ondansetron HCl (Ondansetron Hcl 4 Mg/2 Ml Vial) 4 mg IVPUSH Q8H PRN PRN Reason: Nausea and Vomiting Sodium Chloride (0.9 % Sodium Chloride Flush 3 Ml Syringe) 3 ml IVFLUSH QSHIFT [facility] Home Medications ?Medication ?Instructions ?Recorded ?Confirmed ?Last Taken ?Type amlodipine 10 mg tablet 10 mg PO DAILY 05/25/2507/1905/25/25 History atorvastatin 20 mg tablet 20 mg PO DAILY 05/25/2507/1905/25/25 History dapagliflozin propanediol 10 mg 10 mg PO DAILY 5 05/25/25 05/25/25 History tablet (Farxiga) hydrochlorothiazide 25 mg tablet 25 mg PO DAILY 05/25/25 05/25/25 History lisinopril 20 mg tablet 20 mg PO BID 05/25/2505/25/25 History metformin 1,000 mg tablet 1,000 mg PO BID 05/25/2507/1905/25/25 History omeprazole 40 mg capsule,delayed 40 mg PO DAILY@0630 1 07/26/24 05/25/25 05/25/25 History release Physical Exam 2 Vital Signs and Narrative: Vital Signs: Last Vital Signs Temp 97.8 F 05/25/25 19:26 Pulse 86 05/25/25 19:26 Resp 18 05/25/25 19:26 BP 122/71 05/25/25 19:26 Pulse Ox 97 05/25/25 19:26 O2 Del Method Room Air 05/25/25 19:26 BMI result Body Mass Index 16.5 General: AOx3, no acute distress Resp: CTA bilaterally CVS: S1, S2, RRR GI: +BS, NT, no distention Skin: Warm, dry Neuro: Cranial nerves II-XII grossly intact bilaterally. Motor grossly intact bilaterally. Chronic left-sided facial droop. No pronator drift. Sensation to light touch intact of face, upper and lower extremities bilaterally. Visual dennis full. Speech fluent and spontaneous No obvious dysarthria. Strength of upper and lower extremities intact and symmetric. Extremities: No edema Psych: Appropriate affect Results Labs 05/25/25 12:26 05/25/25 18:17 Labs: Laboratory Results - last 24 hr 05/25/25 05/25/25 05/25/25 12:26 12:27 18:17 MCV 93.2 MCH 31.7 MCHC 34.0 RDW 13.3 Plt Count 267 MPV 10.1 Immature Gran % (Auto) 0.3 Neut % (Auto) 71.6 Lymph % (Auto) 19.9 L Surry % (Auto) 5.4 Eos % (Auto) 1.9 Baso % (Auto) 0.9 Lymph # (Auto) 1.9 Surry # (Auto) 0.5 Eos # (Auto) 0.2 Baso # (Auto) 0.1 Abs Immat Gran (auto) 0.03 Absolute Neuts (auto) 6.8 Absolute Nucleated RBC 0.000 Nucleated RBC % (auto) 0.0 PT 13.3 INR 1.1 Anion Gap 17 16 Estim Creat Clear Calc 23.6 26.2 Estimated GFR 31 35 Random Glucose 112 110 Calcium 9.1 9.3 Magnesium 1.4 L* Total Bilirubin 0.6 AST 25 ALT 29 Alkaline Phosphatase 71 Troponin I High Sens 8.1 Total Protein 7.5 Albumin 4.5 Triglycerides 268 H Cholesterol 141 LDL Cholesterol, Calc 56 HDL Cholesterol 32 L Influenza Type A (PCR) NEGATIVE Influenza Type B (PCR) NEGATIVE RSV RNA Qual (PCR) NEGATIVE SARS-CoV-2 RNA (RT-PCR) NEGATIVE Imaging Radiologist's Impressions: Impressions Head CT 05/25/25 11:53 IMPRESSION: Right RETAIL PERSONAL BANKER territory ischemic change, favor chronic. Electronically signed by: Jeancarlos Delgado MD 05/25/2025 12:10 PM EST Assessment and Plan (1) CVA (cerebral vascular accident): Qualifiers: CVA mechanism: unspecified Qualified Code(s): I63.9 - Cerebral infarction, unspecified Status: Acute Plan Pt is a 55-year-old male with a PMH significant for?HTN, HLD, non-insulin dependent diabetes type 2, CKD (reportedly being worked up for a mass on the kidney) and GERD who presents to the ED with?poor balance and head pressure x7 days. Pt is admitted to the hospital for acute CVA. Acute CVA Difficulty walking and head pressure x7 days MRI showing acute right RETAIL PERSONAL BANKER territory infarct Start aspirin 81mg daily, increase atorvastatin to 40mg daily Carotid u/s if unable to get CTA of head/neck due to CKD Echocardiogram Neurology consult PT/OT evaluation CKD Creatinine 2.22, baseline unknown Reports being worked up for renal mass Monitor creatinine Hypomagnesmia Repleted in the ED Monitor HTN Hold antihypertensives for now to allow for permissive HTN Non-insulin dependent diabetes type 2 Hold metformin SSI, diabetic diet GERD PPI Full Code Attending:?Dr. Jonas DVT Prophylaxis: Heparin Pt will require a hospitalization of at least two nights for treatment of?acute CVA requiring close cardiac and neurological monitoring as well as PT/OT evaluation for safe disposition. Quality Stroke Does the patient have a stroke diagnosis?: Yes Reason for No Anti-thrombotic by Day Two: N/A - Med Ordered (Pt outside of tNK window; has received asa) VTE Prior VTE?: No VTE Risk Level:: Medical - moderate - high VTE Device Contraindication: Treatment Not Indicated VTE Drug Contraindication: N/A - Med Ordered
[2025-05-25 22:45] VITALS: BP 117/73; PULSE 78; RESP 18; TEMP 36.9; O2SAT 93
--- NOTE | 2025-05-25 23:15 | PC.NURSE ---
Report taken from Jayla RN assumed care of pt at this time. Pt A&Ox3 skin pwd respirations even unlabored. Offers no complaints. No neuro deficits noted. Awaiting bed assignment for admission, aware of plan of care.
[2025-05-26] MEDS: 0.9 % Sodium Chloride Flush 3 ML SYRINGE IVFLUSH (00:34)
[2025-05-26 04:00] VITALS: RESP 16
[2025-05-26 04:26] LABS: Anion Gap 14 (12-20); Blood Urea Nitrogen 39 mg/dL (9-16); Calcium 8.8 mg/dL (8.4-10.2); Carbon Dioxide 21 mmol/L (22-29); Chloride 109 mmol/L (96-108); Creatinine Clr Calc Pharmacy 28.0; Estimated Glomerular Filt Rate 38; Magnesium 1.8 mg/dL (1.6-2.6); Potassium 4.1 mmol/L (3.3-5.1); Sodium 140 mmol/L (135-145)
[2025-05-26 05:41] VITALS: BP 121/72; PULSE 81; RESP 16; O2SAT 95
--- NOTE | 2025-05-26 05:50 | PC.NURSE ---
Pt resting in bed eyes closed skin pwd respirations even unlabored, no change in physical assessment. Neuros intact no deficits noted. Awaiting bed assignment for admission.
--- NOTE | 2025-05-26 08:33 | PC.NURSE ---
Pt A&O X4 Ambulates independently- asking for DC to home. States he can't rest here. Attempting to notify provider. VSS NAD
[2025-05-26 10:38] VITALS: BP 125/80; PULSE 93; RESP 16; O2SAT 95
--- NOTE | 2025-05-26 11:12 | MHC.CM.PN ---
Pt. 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 PCP is: DON Keita in [place], HCP discussed, he declined to complete form at this time. PT and OT rec are no therapy indicated. Transport home at DC via girlfriend, DCP; home, self care. CM to follow for DC needs.
[2025-05-26 14:20] VITALS: BP 119/80; PULSE 82; RESP 16; TEMP 36.2; O2SAT 95
--- NOTE | 2025-05-26 14:21 | MHC.CM.PN ---
PATIENT IS DC HOME WITH NO NEED FOR SERVICES. RN AWARE OF PLAN.
--- NOTE | 2025-05-26 14:24 | P.DS_ITS ---
DS: Providers Provider Date of Service: 05/26/25 Date of admission: 05/25/25 14:10 Date of discharge: 05/26/25 Primary care physician: DON Dubose Consults: 05/25/25 14:34 Consult to Neurology Routine Consulting Provider: [facility] Reason for consultation: Ataxia x1 week, ?CVA DS: Diagnosis Discharge Diagnosis (1) CVA (cerebral vascular accident): Status: Acute DS: Summary Hospital Course Hospital Course: From admission HPI: Date of Service: 05/25/25 Chief Complaint: Difficulty walking Pt is a 55-year-old male with a PMH significant for?HTN, HLD, non-insulin dependent diabetes type 2, CKD (reportedly being worked up for a mass on the kidney) and GERD who presents to the ED with?poor balance and head pressure x7 days. Pt is uncertain exactly how to voice his complaints, but describes difficulty walking as being not sure where my feet are going . Headache is less a pain than a pressure at the front of his head. At first was very intense though now has gradually gotten better. Pt reports that he just feels off and not right . Denies ale paresis or fall. No difficulty speaking or word finding. Reports a previous similar episode 5 years ago when his left eye and lip drooped for a few days before recovering somewhat, though he reports he now has a chronic left-sided facial droop. Did not have a headache at that time. Did not seek medical attention or evaluation at that time. Pt did not come to the hospital last week as he thought he could similarly wait out these symptoms; however when they did not resolve his girlfriend convinced him to come to the hospital for evaluation. In the ED pt's vitals were stable. Labs were significant for creatinine 2.22 (baseline unknown, magnesium 1.4, triglycerides 268, HDL 32. CT of head showing right HEAD OF [employer] territory ischemic change favoring chronic infarct. MRI showing acute right HEAD OF [employer] territory infarct. Pt was treated in the ED with magnesium sulfate 2g IV and 1L IVF bolus. Pt is admitted to the hospital for acute CVA. Hospital Course Pt was admitted to the hospital after experiencing poor balance, walking difficulties, and pressure for the past 7 days. Pt underwent MRI which was positive for acute right HEAD OF [employer] territory infarct. Was unable to get CTA of head/neck due to CKD, but did get carotid ultrasound was negative for significant stenosis. Lathe Setup Operator services were limited, and pt was unable to get an inpatient echocardiogram which will instead have to be arranged outpatient. Pt was monitored overnight on telemetry which failed to demonstrate any significant cardiac arrhythmias pt was seen and evaluated physical therapy who ultimately cleared him and did not think he required any additional PT/OT services at this time. At time of discharge pt reported that his head pressure had resolved and he felt back to baseline. Pt will be discharged home on aspirin 81 mg daily and increasingly atorvastatin to 40 mg daily. Pt will need to follow up with Dr. White and Neurology 1 2 weeks for stroke management and prevention. Pt is a current pack-a-day smoker, and was strongly encouraged to stop smoking; to that effect was prescribed a 21 mg nicotine patch. Pt should follow up with his primary care in 1 week for routine post hospitalization visit, as well as with his generation technologist for management and further workup with biopsy for his renal mass. He should resume all of his other home medications. Time Attestation Discharge Coordination Time (in mins): 35 Quality: Safe Use of Opioids Does Pt have an Active Cancer Diagnosis on the Problem List?: No Quality: Stroke Does the patient have a stroke diagnosis?: Yes Reason for No Anti-thrombotic at DC: N/A - Med Ordered (Aspirin ordered) Reason for No Anticoagulant at DC: Drug treatment not indicated (No indication of a arrhythmia/AFib. Pt being discharged on aspirin and statin) Reason Not Initiating IV-Tpa: Contraindicated (Pt's symptoms began 7 days earlier; he is outside of T[facility] therapeutic window) Reason for No Anti-thrombotic by Day Two: N/A - Med Ordered (Pt has aspirin ordered) Reason for No Statin at DC: N/A - Med Ordered (Atorvastatin increased to 40 mg daily) Physical Exam Exam: Exam: General: AOx3, no acute distress Resp: CTA bilaterally CVS: S1, S2, RRR GI: +BS, NT, no distention Skin: Warm, dry Neuro: Cranial nerves II-XII grossly intact bilaterally. Motor grossly intact bilaterally. Chronic left-sided facial droop. No pronator drift. Sensation to light touch intact of face, upper and lower extremities bilaterally. Visual dennis full. Speech fluent and spontaneous No obvious dysarthria. Strength of upper and lower extremities intact and symmetric. Extremities: No edema Psych: Appropriate affect Vital Signs: Vital Signs: Last Vital Signs Temp 97.2 F 05/26/25 14:20 Pulse 82 05/26/25 14:20 Resp 16 05/26/25 14:20 BP 119/80 05/26/25 14:20 Pulse Ox 95 05/26/25 14:20 O2 Del Method Room Air 05/26/25 14:20 BMI result Body Mass Index 16.5 DS: Data Data Completed and Pending Labs on day of discharge: Laboratory Results - last 24 hr 05/25/25 05/25/25 05/26/25 12:26 18:17 03:24 Sodium 141 140 Potassium 4.5 4.1 Chloride 108 109 H Carbon Dioxide 22 21 L Anion Gap 16 14 BUN 44 H 39 H Creatinine 2.00 H 1.87 H Estim Creat Clear Calc 26.2 28.0 Estimated GFR 35 38 Random Glucose 110 111 Calcium 9.3 8.8 Magnesium 1.8 Triglycerides 268 H Cholesterol 141 LDL Cholesterol, Calc 56 HDL Cholesterol 32 L Discharge Plan Discharge Anticipated Discharge Date/Time: 05/26/25 13:31 Patient Disposition: Home, Self-Care Discharge Diagnosis: Subacute CVA Referrals: Jose R Carrizales PA [Primary Care Provider, Medical] - 1 Week Marek White MD [Physician, Neurology] - 1 Week Referral Note: Follow up for acute right HEAD OF [employer] territory infarct Discharge Medications: New atorvastatin [Lipitor] 40 mg tablet 40 mg PO DAILY Qty: 90 0RF Rx Instructions: Take 1 tablet daily for cholesterol aspirin 81 mg tablet 81 mg PO DAILY Qty: 90 0RF nicotine 21 mg/24 hr patch 24 hour 1 patch transdermal DAILY Qty: 28 1RF Continued atorvastatin 20 mg tablet 20 mg PO DAILY omeprazole 40 mg capsule,delayed release(DR/EC) 40 mg PO DAILY@0630 amlodipine 10 mg tablet 10 mg PO DAILY metformin 1,000 mg tablet 1,000 mg PO BID hydrochlorothiazide 25 mg tablet 25 mg PO DAILY dapagliflozin propanediol [Farxiga] 10 mg tablet 10 mg PO DAILY Discontinued lisinopril 20 mg tablet 20 mg PO BID Discharge Orders: Discharge Order (Routine); Ordered 05/26/25 Ordered By: Ankit Mclain Activity on Discharge: As tolerated Stand Alone Forms: Patient Portal Discharge page Print Language: Palauan Care Plan Goals: See below Health Concerns: Acute stroke Difficulty walking Headache Plan of Treatment: You were admitted to the hospital after experiencing poor balance and head pressure for the past 7 days, and workup in the hospital was positive for an acute right HEAD OF [employer] territory infarct. You were seen and evaluated by Neurology and started on aspirin 81 mg daily and atorvastatin 40 mg daily. You also went ultrasound of carotid arteries which was negative for any significant stenosis. You were unable to undergo an echocardiogram, and this can be arranged outpatient. You were monitored overnight on telemetry which failed to demonstrate any significant cardiac arrhythmias. You were seen and evaluated by Physical therapy who did not think any PT/OT intervention is necessary at this time. At time of discharge you reports that you feel better and back at baseline, and pressure in your head as resolved. -- you will be started on aspirin 81mg daily. -- your atorvastatin will be increased to 40mg daily; you were previously taking atorvastatin 20mg daily and can take 2 pills daily to finish your current supply. -- you should follow up with Dr. White in neurology in 1-2 weeks for stroke management and prevention. -- you were strongly encouraged to stop smoking. You will be prescribed nicotine patches to help in this endeavor. -- you are also strongly encouraged to eat a low-fat and healthy diet comprising of whole grains, lean protein, and fresh fruits and vegetables. -- follow up with your PCP in 1 week for routine post-hospitalization visit. You should also have your PCP arrange for outpatient echocardiogram to complete your workup, as this was unable evaluation of the hospital. -- follow up with nephrology for renal mass management Assessment: See discharge summary
== END 2025-05-26 16:45 | disposition home or self-care (01) | DRG 45 ==
LOC: HO.ED 12:42 → HO.EDOVER 14:18
PROVIDERS: Registered Nurse Emergency; Admitting Provider Student in an Organized Health Care Education/Training Program; Emergency Provider Student in an Organized Health Care Education/Training Program; PCP Physician Assistant; Visit Provider Student in an Organized Health Care Education/Training Program
DX: I63.531 Cerebral infarction due to unspecified occlusion or stenosis of right posterior cerebral artery (principal); E11.22 Type 2 diabetes mellitus with diabetic chronic kidney disease; F17.210 Nicotine dependence, cigarettes, uncomplicated; E78.5 Hyperlipidemia, unspecified; K21.9 Gastro-esophageal reflux disease without esophagitis; R29.701 NIHSS score 1; I12.9 Hypertensive chronic kidney disease with stage 1 through stage 4 chronic kidney disease, or unspecified chronic kidney disease; N18.9 Chronic kidney disease, unspecified; Z20.822 Contact with and (suspected) exposure to COVID-19; Z71.6 Tobacco abuse counseling; Z79.84 Long term (current) use of oral hypoglycemic drugs; Z79.899 Other long term (current) drug therapy
CPT/HCPCS: 36415; 70450; 70551; 80048; 80053; 80061; 83735; 84484; 85025; 85610; 87637; 93005; 93880; 97161; 97165; 99285; J1650; J3475; J7120

== ENCOUNTER → 2025-05-25 11:24 | Outpatient (BNV) | payer OTHER, SELFPAY | PROVIDERS: Emergency Provider Student in an Organized Health Care Education/Training Program; Visit Provider Radiology Diagnostic Radiology | DX: I63.431 Cerebral infarction due to embolism of right posterior cerebral artery (principal) | CPT/HCPCS: 70450; 70551 ==

== ENCOUNTER → 2025-05-25 11:24 | Outpatient (BNV) | payer OTHER, SELFPAY | PROVIDERS: Admitting Provider Student in an Organized Health Care Education/Training Program; Emergency Provider Student in an Organized Health Care Education/Training Program; PCP Physician Assistant; Visit Provider Internal Medicine | DX: R94.31 Abnormal electrocardiogram [ECG] [EKG] (principal); R26.81 Unsteadiness on feet | CPT/HCPCS: 93010 ==

== ENCOUNTER 2025-05-25 14:10 | Outpatient (BNV) | payer OTHER, SELFPAY | END 2025-05-26 10:10 | PROVIDERS: Admitting Provider Student in an Organized Health Care Education/Training Program; Emergency Provider Student in an Organized Health Care Education/Training Program; Visit Provider Radiology Diagnostic Radiology | DX: I63.9 Cerebral infarction, unspecified (principal); N18.9 Chronic kidney disease, unspecified | CPT/HCPCS: 93880 ==

== ENCOUNTER → 2025-05-25 14:10 | Outpatient (BNV) | payer OTHER, SELFPAY | PROVIDERS: Admitting Provider Student in an Organized Health Care Education/Training Program; Emergency Provider Student in an Organized Health Care Education/Training Program; Visit Provider Psychiatry & Neurology Neurology | DX: I63.9 Cerebral infarction, unspecified (principal) | CPT/HCPCS: 99222 ==

== ENCOUNTER → 2025-05-25 14:10 | Outpatient (BNV) | payer OTHER, SELFPAY | PROVIDERS: Admitting Provider Student in an Organized Health Care Education/Training Program; Emergency Provider Student in an Organized Health Care Education/Training Program; PCP Physician Assistant; Visit Provider Student in an Organized Health Care Education/Training Program | DX: I63.431 Cerebral infarction due to embolism of right posterior cerebral artery (principal) | CPT/HCPCS: 99222; 99239 ==